=== PATIENT | female | born 1960 | race Caucasian/White ===

== ENCOUNTER 2016-09-23 03:34 | Emergency (ER) | payer BC ==
[~2016-09-23] VITALS: Ht 177.8 cm; Wt 99.0 kg
[2016-09-23] MEDS ORDERED: AMOXICILLIN/CLAV 875-125MG TABLET PO ONE (04:30)
[2016-09-23 04:36] VITALS: BP 129/50
== END 2016-09-23 04:38 | disposition home or self-care (01) ==
LOC: ED 04:25
DX: S61.431A Puncture wound without foreign body of right hand, initial encounter (principal); L03.113 Cellulitis of right upper limb; I89.1 Lymphangitis; W55.01XA Bitten by cat, initial encounter; Y93.9 Activity, unspecified; Y92.89 Other specified places as the place of occurrence of the external cause; Y99.8 Other external cause status; Z87.891 Personal history of nicotine dependence
CPT/HCPCS: 99283